=== PATIENT | male | born 1950 | race Caucasian/White ===

== ENCOUNTER 2017-04-13 08:00 | Inpatient (IN) | payer OTHER ==
[2017-03-26 17:07] VITALS: BMI 30.4
[2017-04-16] MEDS ORDERED: ROPIVICAINE 0.2%/MORPH PF/KETOROLAC - 51ML DISP.SYRINGE IA ONE ×3 (09:48→15:31)
[2017-04-16] MEDS ORDERED: TRANEXAMIC ACID 1000 MG/10 ML VIAL IVPUSH ONE (09:48)
[2017-04-16] MEDS ORDERED: CEFAZOLIN 2 GM in DEXTROSE 5%-WATER - 50 ML IVPB ONE (09:48)
[2017-04-16] MEDS: oxyCODONE HCL 10 MG SUSTAINED ACTING TABLET PO ONE ×2 (10:45→16:43)
[2017-04-16] MEDS: CELECOXIB 200 MG CAPSULE PO ONE ×2 (10:45→16:43)
[2017-04-16] MEDS: GABAPENTIN 300 MG CAPSULE (FP) PO ONE ×2 (10:45→16:43)
[2017-04-16] MEDS ORDERED: ePHEDrine SULFATE 50 MG/1 ML AMPULE ONE (11:00)
[2017-04-16] MEDS ORDERED: TRANEXAMIC ACID 1000 MG/10 ML VIAL ONE ×3 (11:01→12:05)
[2017-04-16] MEDS ORDERED: ceFAZolin SODIUM 1 GM VIAL ONE ×2 (11:01→12:05)
[2017-04-16] MEDS ORDERED: PROPOFOL 20 ML ONE ×4 (11:01)
[2017-04-16] MEDS ORDERED: MIDAZOLAM HCL 2 MG/2 ML SINGLE DOSE VIAL ONE ×2 (11:12→15:16)
[2017-04-16] MEDS ORDERED: DEXAMETHASONE SOD PHOSPHATE/PF 10 MG/ML SDV ONE (11:12)
[2017-04-16] MEDS ORDERED: BUPIVACAINE HCL/PF (5 MG/ML) 30 ML VIAL IJ ONE (11:12)
[2017-04-16] MEDS ORDERED: VANCOMYCIN 1,000 MG VIAL (RESTRICTED TO ID ONLY) ONE (12:05)
[2017-04-16] MEDS ORDERED: ONDANSETRON 4 MG/2 ML VIAL IVPUSH PRN (14:46)
[2017-04-16] MEDS ORDERED: ROPIVACAINE 0.2% 400ML 400 ML ML NR ONE (14:47)
[2017-04-16] MEDS ORDERED: oxyCODONE HCL 5 MG TABLET PO PRN ×2 (14:47)
[2017-04-16] MEDS ORDERED: ACETAMINOPHEN 325 MG TABLET (FP) PO SCH (15:00)
[2017-04-16] MEDS ORDERED: MAG HYDROX/AL HYDROX/SIMETH 30 ML UNIT-DOSE CUP PO PRN (15:59)
[2017-04-16] MEDS ORDERED: MAGNESIUM HYDROX 2400MG/30ML ORAL SUSPENSION 30 ML CUP PO PRN (15:59)
[2017-04-16] MEDS ORDERED: ONDANSETRON 4 MG/2 ML VIAL IVPB PRN (15:59)
[2017-04-16] MEDS ORDERED: LACTATED RINGERS SOLUTION 1,000 ML IV SCH (16:00)
[2017-04-16] MEDS ORDERED: PANTOPRAZOLE 40 MG TABLET (FP) PO ONE (16:03)
--- NOTE | 2017-04-16 16:08 | HP ---
Admitting History and Physical - Admission Chief Complaint: left knee OA History Source: Patient, Medical Record Limitations to Obtaining History: No Limitations - Smoking History Smoking history: Never smoked Have you smoked in the past 12 months: No - Alcohol/Substance Use Hx Alcohol Use: Yes (1-2X PER WEEK) Home Medications - Allergies Allergies/Adverse Reactions: Allergies Allergy/AdvReac Type Severity Reaction Status Date / Time shellfish derived Allergy Severe Difficulty Verified 03/26/17 16:55 Breathing No Known Drug Allergies Allergy Verified 03/26/17 16:55 - Home Medications Home Medications: Ambulatory Orders Ibuprofen 800 mg PO DAILY 03/26/17 Quinapril HCl [Accupril] 40 mg PO DAILY 03/26/17 Cholecalciferol (Vitamin D3) [Vitamin D3 -] 1,000 unit PO DAILY 04/16/17 Labetalol HCl [Normodyne -] 200 mg PO DAILY 04/16/17 Physical Examination Vital Signs: Vital Signs Temperature 98.3 F 04/16/17 10:23 Pulse Rate 81 04/16/17 10:23 Respiratory Rate 16 04/16/17 10:23 Blood Pressure 142/93 04/16/17 10:23 O2 Sat by Pulse Oximetry (%) Constitutional: Yes: Well Nourished, No Distress, Calm Eyes: Yes: WNL, Conjunctiva Clear, EOM Intact HENT: Yes: WNL, Atraumatic, Normocephalic Neck: Yes: WNL Cardiovascular: Yes: WNL, Regular Rate and Rhythm Respiratory: Yes: WNL, Regular Gastrointestinal: Yes: WNL, Soft ...Rectal Exam: Yes: Deferred Musculoskeletal: Yes: Joint Stiffness, Joint Swelling, Muscle Pain, Muscle Weakness Extremities: Yes: WNL Edema: No Peripheral Pulses WNL: Yes Integumentary: Yes: WNL Neurological: Yes: WNL, Alert, Oriented ...Motor Strength: WNL Psychiatric: Yes: WNL, Alert, Oriented Labs: Reviewed in chart Imaging - Results X-ray: Image Reviewed Problem List - Problems (1) Osteoarthritis of left knee Code(s): M17.12 - UNILATERAL PRIMARY OSTEOARTHRITIS, LEFT KNEE Qualifiers: Osteoarthritis type: primary Qualified Code(s): M17.12 - Unilateral primary osteoarthritis, left knee
--- NOTE | 2017-04-16 16:09 | OP ---
Operative Note - Note: Operative Date: 04/16/17 Pre-Operative Diagnosis: left knee OA Operation: Left TKA Post-Operative Diagnosis: Same as Pre-op Surgeon: Adair Moore Unit Manager Rn: Goldie Rojas Anesthesia: Spinal Estimated Blood Loss (mls): 50
[2017-04-16] MEDS: KETOROLAC TROMETHAMINE 30 MG/1 ML VIAL IVPUSH SCH ×3 (16:25→21:31)
[2017-04-16] MEDS: ACETAMINOPHEN 1000 MG/100 ML VIAL (NON FORMULARY) IVPB ONE ×2 (16:25→16:45)
[2017-04-16] MEDS: LACTATED RINGERS SOLUTION 1,000 ML IV SCH (16:44)
[2017-04-16] MEDS: traMADol HCL 50 MG TABLET PO SCH ×3 (16:57→22:23)
--- NOTE | 2017-04-16 17:06 | SPEC ---
DATE OF OPERATION: 04/16/2017 PREOPERATIVE DIAGNOSIS: Left knee osteoarthritis. POSTOPERATIVE DIAGNOSIS: Left knee osteoarthritis. PROCEDURE: Left total knee replacement. ATTENDING: Tila Larsen M.D. INSURANCE CONSULTANT: Chavo Schmitt ANESTHESIA: Spinal plus sedation. ESTIMATED BLOOD LOSS: 50 mL. COMPLICATIONS: None. SPECIMENS: Resected bone and tissue with nodular changes resembling nonpigmented PVNS was sent for pathology. IMPLANTS USED: Damien Triathlon size 5 femoral component, Damien Triathlon size 4 tibial component, 13-mm posterior stabilized polyethylene component, 32-mm patellar component. DISPOSITION: The patient was transferred to the PACU in stable condition. INDICATION: This is a 67-year-old male presented to the office complaining of bilateral knee pain. He was diagnosed with bilateral knee osteoarthritis and underwent a long period of nonoperative management including medications, injections, and physical therapy. The patient continues to have severe pain and ambulatory dysfunction and was therefore indicated for a total knee replacement. The risks, benefits, and alternatives to the procedure were explained to the patient in great detail, and he elected to proceed with the surgery. DESCRIPTION OF PROCEDURE: On the day of surgery, the patient was taken to the operating room and placed on the OR table. Spinal anesthesia was administered by the anesthesiologist. The patient was then positioned supine on the table and all bony prominences were padded. A nonsterile tourniquet was placed on the proximal thigh. The knee was then prepped and draped in the usual sterile fashion and intravenous antibiotics were given for infection prophylaxis. A surgical time-out was then performed with the team, and the patients identity, procedure, side, availability of implants, and the administration of antibiotics was confirmed. The leg was then elevated and exsanguinated, and the tourniquet was inflated. With the knee flexed, a midline incision was made and carried down through the subcutaneous fat to the underlying retinaculum. A medial parapatellar arthrotomy was performed. This was followed by a subperiosteal dissection of the tissue off the proximal, medial tibia. A portion of fat pad was removed from under the patellar tendon, and a small portion of fat was excised off the distal supracondylar femur. The knee was then flexed further and the anterior horn of the lateral meniscus was released from the midline. Next, the anterior and posterior cruciate ligaments were transected. Osteophytes were removed from both the femur and tibia. Grade 4 changes were noted diffusely throughout the knee. Hohmann retractors were then placed around the distal femur. The starting drill was used to enter the intramedullary canal. The starting point had been chosen by checking the radiographs and anatomy. Proper alignment and intramedullary placement was then confirmed by placing the long narrow maycol into the femur. Next, the distal femoral cutting guide was adjusted to 6 degrees of valgus and pinned to the femur. The bone resection was assessed using an juliocesar-wing. An approximately 10mm distal cut was made and the cut pieces measured. Once this was complete, the sizing guide was used to determine which size femoral component should be used. Next, the appropriately sized 4-in-1 cutting block was then placed at the correct amount of external rotation and the juliocesar wing was used to assure that there would be no notching of the anterior cortex of the femur. Once this was done, Hohmann retractors were used to protect the medial and lateral collateral ligaments, and all appropriate bone cuts were made. Attention was then turned to the tibia. Hohmann retractors were used to translate the tibia anteriorly and protect the collateral ligaments. The medial and lateral menisci were removed. The extramedullary tibial alignment guide was then placed and adjusted for rotation, varus/valgus, and slope. The height of the cutting block was adjusted to the level of the desired bone resection and then pinned in place. The proximal tibia was then cut with a saw and the bone was removed and measured. Once this was completed, trial components were placed and the knee was taken through a full range of motion. Soft tissue balance was assessed in both flexion and extension and found to be appropriate. The knee was stable throughout the full range of motion. The knee was then put into extension and the patella everted. The synovium around the patella was circumscribed with electrocautery. A caliper was used to measure the patellar thickness and a saw was then used to resect the patella at the chondro-osseous junction. The cut surface was then sized and drilled for the appropriate patellar button, with care taken to medialize it. A trial patella was then placed and the knee was again taken through a full range of motion. The knee was found to have both good balance and good patellar tracking. All of the components were removed except the tibial base plate. The appropriate instrumentation was used to drill and punch the proximal tibia for the keel of the final component. All bony surfaces were then cleaned with pulsatile lavage and dried. Bone cement was then prepared on the back table, and final components were cemented in place in the usual fashion. Extruded cement was removed. The polyethylene trial was placed, the knee was put into extension, and axial pressure was applied for compression while the cement hardened. The patellar button was similarly cemented into place. Once the cement had hardened, the knee was taken through a full range of motion to assess stability, balance, and patellar tracking. This was found to be optimal and the trial polyethylene was exchanged for the appropriately sized real implant. The wound was then thoroughly irrigated with normal saline. No. 1 Polysorb and 0 VLoc 180 barbed sutures were used to close the arthrotomy. No. 1 Polysorb and 2-0 Polysorb sutures were used in the subcutaneous tissues. The skin was closed using both 3-0 VLoc 90 suture in a running subcuticular fashion and SwiftSet skin adhesive. Once this was completed a sterile Aquacel dressing and compressive Jeffrey-wrap was applied. The tourniquet was then deflated and the patient was awakened and taken to the PACU in stable condition. ADDENDUM NUMBER 1: After the arthrotomy, we encountered nodular synovitis in the suprapatellar region. A large portion of this was excised and sent for pathology analysis. ADDENDUM NUMBER 2: After the final implants were placed, a 3-minute dilute Betadine lavage was performed according to the DERMOTT protocol. After this, the knee was thoroughly irrigated with normal saline via pulsatile lavage and wound closure was begun. TILA LARSEN M.D. [id number]
[2017-04-16] MEDS: SENNOSIDES/DOCUSATE COMBO (SENNA PLUS) TABLET (UD) PO SCH (21:29)
[2017-04-16] MEDS: GABAPENTIN 300 MG CAPSULE (FP) PO SCH (21:29)
[2017-04-16] MEDS: ACETAMINOPHEN 325 MG TABLET (FP) PO SCH (21:29)
[2017-04-16] MEDS: CELECOXIB 200 MG CAPSULE PO SCH (21:29)
[2017-04-16] MEDS: ASCORBIC ACID 500 MG TABLET (FP) PO SCH (21:29)
[2017-04-16] MEDS: oxyCODONE HCL 10 MG SUSTAINED ACTING TABLET PO SCH (21:30)
[2017-04-16] MEDS: CEFAZOLIN 2 GM in DEXTROSE 5%-WATER - 50 ML IVPB SCH (21:31)
[2017-04-16] MEDS ORDERED: GABAPENTIN 300 MG CAPSULE (FP) PO SCH (22:00)
[2017-04-17] MEDS: ACETAMINOPHEN 325 MG TABLET (FP) PO SCH ×4 (03:11→21:12)
[2017-04-17] MEDS: KETOROLAC TROMETHAMINE 30 MG/1 ML VIAL IVPUSH SCH ×2 (03:17→11:20)
[2017-04-17] MEDS: CEFAZOLIN 2 GM in DEXTROSE 5%-WATER - 50 ML IVPB SCH (04:46)
[2017-04-17] MEDS: traMADol HCL 50 MG TABLET PO SCH ×4 (04:46→23:01)
[2017-04-17] MEDS: ASPIRIN 325 MG TABLET PO SCH (07:48)
[2017-04-17 08:00] LABS: MCH 29.8 pg (25.7-33.7); MCHC 33.6 g/dl (32.0-35.9); MEAN CELL VOLUME 88.7 fl (80-96); MEAN PLT VOLUME 8.3 fl (7.5-11.1); PLATELET COUNT 222 K/MM3 (134-434); RDW 14.1 % (11.9-15.9); WHITE BLOOD COUNT 10.4 K/mm3 (4.0-10.8)
[2017-04-17 08:05] LABS: ANION GAP 9 (8-16); CALCIUM 8.6 mg/dl (8.4-10.2); CO2 27 mmol/L (22-28); CREATININE 1.5 mg/dl (0.6-1.3); GLUCOSE,RANDOM 184 mg/dl (74-106)
--- NOTE | 2017-04-17 08:05 | SURG ---
Surgery Journeyman Pipe Welder Note Journeyman Pipe Welder: Goldie Rojas PA-C Date of Service: 04/16/17 Diagnosis: left knee OA Procedure: Left TKA I was present for the entirety of the operative procedure. For further detail, please refer to operative report. Visit type - Case Type Case Type: Scheduled Admission
[2017-04-17 09:07] LABS: HIV 1 & 2 AB NEGATIVE; HIV 1 AGp24 NEGATIVE
[2017-04-17] MEDS ORDERED: PT OWN MED DRAWER 7, Y5N ONE ×2 (09:07→09:09)
--- NOTE | 2017-04-17 09:08 | PN ---
Progress Note, Physician Chief Complaint: s/p left TKA under spinal anesthesia History of Present Illness: post op day one with adductor canal catheter in place for post op pain control - Current Medication List Current Medications: Active Medications Acetaminophen (Tylenol -) 650 mg PO Q6H [facility] Stop: 04/19/17 16:01 Last Admin: 04/17/17 03:11 Dose: 650 mg Al Hydroxide/Mg Hydroxide (Mylanta Oral Suspension -) 30 ml PO Q4H PRN PRN Reason: DYSPEPSIA Ascorbic Acid (Vitamin C -) 500 mg PO BID [facility] Last Admin: 04/16/17 21:29 Dose: 500 mg Aspirin (Asa -) 325 mg PO DAILY@0800 [facility] Last Admin: 04/17/17 07:48 Dose: 325 mg Celecoxib (Celebrex -) 200 mg PO BID [facility] Last Admin: 04/16/17 21:29 Dose: 200 mg Fentanyl (Sublimaze Injection -) 50 mcg IVPUSH [id number] PRN PRN Reason: PAIN Stop: 04/19/17 14:47 Gabapentin (Neurontin -) 300 mg PO BID [facility] Stop: 04/19/17 21:59 Last Admin: 04/16/17 21:29 Dose: 300 mg Lactated Ringer's (Lactated Ringers Solution) 1,000 mls @ 125 mls/hr IV ASDIR [facility] Last Admin: 04/16/17 16:44 Dose: Not Given Ketorolac Tromethamine (Toradol Injection -) 30 mg IVPUSH Q6H [facility] Stop: 04/17/17 10:16 Last Admin: 04/17/17 03:17 Dose: 30 mg Labetalol HCl (Normodyne -) 200 mg PO DAILY [facility] Magnesium Hydroxide (Milk Of Magnesia -) 30 ml PO PRN PRN PRN Reason: CONSTIPATION Multivitamins/Minerals/Vitamin C (Tab-A-Vit -) 1 tab PO DAILY [facility] Ondansetron HCl (Zofran Injection) 4 mg IVPB Q6H PRN PRN Reason: NAUSEA Oxycodone HCl (Oxycontin -) 10 mg PO BID [facility] Stop: 04/19/17 14:47 Last Admin: 04/16/17 21:30 Dose: 10 mg Oxycodone HCl (Roxicodone -) 5 mg PO Q4H PRN PRN Reason: PAIN Stop: 04/19/17 14:47 Oxycodone HCl (Roxicodone -) 10 mg PO Q4H PRN PRN Reason: PAIN Stop: 04/19/17 14:48 Pantoprazole Sodium (Protonix -) 40 mg PO DAILY [facility] Quinapril HCl (Accupril -) 40 mg PO DAILY [facility] Senna/Docusate Sodium (Pericolace -) 1 tablet PO BID [facility] Last Admin: 04/16/17 21:29 Dose: 1 tablet Tramadol HCl (Ultram -) 50 mg PO Q6H [facility] Last Admin: 04/17/17 04:46 Dose: 50 mg - Objective Vital Signs: Vital Signs Temperature 97.6 F 04/17/17 03:00 Pulse Rate 67 04/17/17 03:00 Respiratory Rate 19 04/17/17 07:59 Blood Pressure 148/89 04/17/17 03:00 O2 Sat by Pulse Oximetry (%) 100 04/17/17 07:59 Constitutional: Yes: Well Nourished Cardiovascular: Yes: WNL Respiratory: Yes: WNL Gastrointestinal: Yes: WNL Neurological: Yes: WNL Labs: CBC, BMP 04/17/17 07:20 04/17/17 07:20 Assessment/Plan No acute complications from anesthetic, pain controlled, no nausea or vomiting, no residual motor block, no headache. Catheter site is clean dry and intact. dept of anesthesiology will sign off care at this time.
[2017-04-17] MEDS: QUINAPRIL HCL 40 MG TABLET (FP) PO SCH (09:10)
[2017-04-17] MEDS: CELECOXIB 200 MG CAPSULE PO SCH ×2 (09:10→21:11)
[2017-04-17] MEDS: LABETALOL HCL 100 MG TABLET (FP) PO SCH (09:10)
[2017-04-17] MEDS: GABAPENTIN 300 MG CAPSULE (FP) PO SCH ×2 (09:10→21:10)
[2017-04-17] MEDS: MULTIVITAMINS (DAILY MVI) TABLET (FP) PO SCH (09:11)
[2017-04-17] MEDS: ASCORBIC ACID 500 MG TABLET (FP) PO SCH ×2 (09:11→21:11)
[2017-04-17] MEDS: oxyCODONE HCL 10 MG SUSTAINED ACTING TABLET PO SCH ×2 (09:11→21:11)
[2017-04-17] MEDS: SENNOSIDES/DOCUSATE COMBO (SENNA PLUS) TABLET (UD) PO SCH ×2 (09:11→21:12)
[2017-04-17] MEDS: PANTOPRAZOLE 40 MG TABLET (FP) PO SCH (09:11)
[2017-04-17] MEDS: LACTATED RINGERS SOLUTION 1,000 ML IV SCH (16:13)
[2017-04-18] MEDS: ACETAMINOPHEN 325 MG TABLET (FP) PO SCH ×2 (04:39→10:03)
[2017-04-18] MEDS: traMADol HCL 50 MG TABLET PO SCH ×2 (05:40→10:05)
[2017-04-18 06:01] VITALS: BP 117/76; PULSE 78; TEMP 97.8
[2017-04-18 07:52] LABS: MCH 30.8 pg (25.7-33.7); MCHC 34.7 g/dl (32.0-35.9); MEAN CELL VOLUME 88.7 fl (80-96); MEAN PLT VOLUME 7.8 fl (7.5-11.1); PLATELET COUNT 178 K/MM3 (134-434); WHITE BLOOD COUNT 7.7 K/mm3 (4.0-10.8)
[2017-04-18 08:10] LABS: ANION GAP 8 (8-16); CALCIUM 7.9 mg/dl (8.4-10.2); CO2 27 mmol/L (22-28); CREATININE 1.2 mg/dl (0.6-1.3); GLUCOSE,RANDOM 102 mg/dl (74-106)
--- NOTE | 2017-04-18 08:35 | PN ---
Progress Note (short form) - Note Progress Note: S: Pt. without complaints O: VAS 0/10 A/P: pod#1 s/p left tkr 1. adductor canal cath pulled. tip intact 2. continue po pain meds as ordered
[2017-04-18] MEDS ORDERED: PT OWN MED DRAWER 7, Y5N ONE (10:01)
[2017-04-18] MEDS: PANTOPRAZOLE 40 MG TABLET (FP) PO SCH (10:03)
[2017-04-18] MEDS: oxyCODONE HCL 10 MG SUSTAINED ACTING TABLET PO SCH (10:04)
[2017-04-18] MEDS: CELECOXIB 200 MG CAPSULE PO SCH (10:04)
[2017-04-18] MEDS: LABETALOL HCL 100 MG TABLET (FP) PO SCH (10:04)
[2017-04-18] MEDS: ASCORBIC ACID 500 MG TABLET (FP) PO SCH (10:04)
[2017-04-18] MEDS: GABAPENTIN 300 MG CAPSULE (FP) PO SCH (10:05)
[2017-04-18] MEDS: MULTIVITAMINS (DAILY MVI) TABLET (FP) PO SCH (10:06)
[2017-04-18] MEDS: SENNOSIDES/DOCUSATE COMBO (SENNA PLUS) TABLET (UD) PO SCH (10:07)
[2017-04-18] MEDS: ASPIRIN 325 MG TABLET PO SCH (10:07)
[2017-04-18] MEDS: QUINAPRIL HCL 40 MG TABLET (FP) PO SCH (10:08)
--- NOTE | 2017-04-18 13:44 | PN ---
Progress Note (short form) - Note Progress Note: This note is for Thursday04/19/17. Pt seen and examined yesterday evening. Doing well. Ambulated several hundred feet. No complaints. AVSS Selected Entries 04/17/17 14:22 Temperature 98.0 F Pulse Rate 69 Respiratory 18 Rate Blood Pressure 131/70 O2 Sat by Pulse 96 Oximetry (%) Laboratory Tests 04/17/17 04/17/17 07:20 07:20 WBC 10.4 Hgb 15.0 Hct 44.6 Plt Count 222 Sodium 134 L Potassium 4.7 Chloride 98 Carbon Dioxide 27 Anion Gap 9 BUN 21 H Creatinine 1.5 H Random Glucose 184 H Gen: NAD LLE: c/d/i, NVID A/P 67yo male POD#1 s/p L TKA 1. PT/OOB 2. D/C home Thursday. Problem List - Problems (1) Osteoarthritis of left knee Code(s): M17.12 - UNILATERAL PRIMARY OSTEOARTHRITIS, LEFT KNEE Qualifiers: Osteoarthritis type: primary Qualified Code(s): M17.12 - Unilateral primary osteoarthritis, left knee
--- NOTE | 2017-04-18 13:50 | PN ---
Progress Note (short form) - Note Progress Note: This note is for Thursday04/18/17. Pt seen and examined today. Doing well. Ambulated several hundred feet this morning. No complaints. AVSS Selected Entries 04/17/17 04/17/17 19:50 19:55 Temperature 97.5 F L Pulse Rate 69 Respiratory 18 Rate Blood Pressure 122/66 O2 Sat by Pulse 96 Oximetry (%) Oxygen Delivery Room Air Method Laboratory Tests 04/18/17 04/18/17 07:42 07:42 WBC 7.7 Hgb 13.3 D Hct 38.4 Plt Count 178 Sodium 136 Potassium 4.0 Chloride 101 Carbon Dioxide 27 Anion Gap 8 BUN 21 H Creatinine 1.2 Random Glucose 102 D Calcium 7.9 L Gen: NAD LLE: c/d/i, NVID A/P 67yo male POD#2 s/p L TKA 1. PT/OOB 2. D/C home today. Problem List - Problems (1) Osteoarthritis of left knee Code(s): M17.12 - UNILATERAL PRIMARY OSTEOARTHRITIS, LEFT KNEE Qualifiers: Osteoarthritis type: primary Qualified Code(s): M17.12 - Unilateral primary osteoarthritis, left knee
--- NOTE | 2017-04-18 13:51 | DS ---
Physical Examination Vital Signs: Vital Signs Temperature 97.8 F 04/18/17 05:59 Pulse Rate 78 04/18/17 05:59 Respiratory Rate 18 04/18/17 05:59 Blood Pressure 117/76 04/18/17 05:59 O2 Sat by Pulse Oximetry (%) 97 04/18/17 05:59 Labs: CBC, BMP 04/18/17 07:42 04/18/17 07:42 Discharge Summary Reason For Visit: SEVERE OSTEOARTHRITIS LEFT KNEE Current Active Problems Osteoarthritis of left knee (Acute) Procedures: Principal: left TKA Hospital Course: Admitted for elective surgery. Procedure performed without complications. Pt received postoperative antibiotic prophylaxis and DVT ppx. Ambulated with physical therapy. Stable for discharge home with outpatient followup. Condition: Stable - Instructions Diet, Activity, Other Instructions: Dr. Moore - Knee Replacement Instructions Keep the Aquacel dressing on until removed by Dr. Moore in 10-14 days - it is antibacterial and waterproof and you can shower with it on. Call the office for a follow-up appointment with Dr. Moore in 10-14 days. Take one Aspirin 325mg daily for 6 weeks to prevent blood clots in your legs. Take one Pantoprazole 40mg daily for 6 weeks to protect against heartburn and ulcers. Take Celebrex 200mg twice daily for 30 days to reduce swelling and inflammation. For pain: *Mild pain (1-3/10): Take 1 Tramadol tablet every 4 hours as needed. Moderate pain (4-6/10): Take 1 Tramadol tablet and 1 Percocet tablet every 4 hours as needed. Severe pain (7-10/10): Take 1 Tramadol tablet and 2 Percocet tablets every 4 hours as needed. Activity: ~You can put as much weight on the operative leg as you want. Right after you get home, there will be a physical therapist coming to your house to help you walk around and bend/straighten your knee. After your follow-up appointment, you will be sent for more intensive outpatient physical therapy which will include machines and equipment that the home therapist cannot bring to your house. Always use a walker or cane for balance and to prevent falls. Disposition: VNS/HOME HEALTH CARE - Home Medications Comprehensive Discharge Medication List: Ambulatory Orders Quinapril HCl [Accupril -] 40 mg PO DAILY 03/26/17 Cholecalciferol (Vitamin D3) [Vitamin D3 -] 1,000 unit PO DAILY 04/16/17 Labetalol HCl [Normodyne -] 200 mg PO DAILY 04/16/17 Aspirin [ASA -] 325 mg PO DAILY@0800 tablet 04/18/17 Celecoxib [CeleBREX -] 200 mg PO BID #30 tab 04/18/17 Chlorpromazine [Thorazine -] 25 mg PO QID PRN #16 tablet 04/18/17 Multivitamins [Multivit ([facility] Formulary)] 1 tab PO DAILY tab 04/18/17 Oxycodone HCl/Acetaminophen [Percocet 5-325 mg Tablet] 1 - 2 tab PO Q4H PRN #60 tablet MDD 10 04/18/17 Pantoprazole Sodium [Protonix -] 40 mg PO DAILY #40 tab 04/18/17 Sennosides/Docusate Sodium [Pericolace -] 1 tablet PO BID tablet 04/18/17 Tramadol HCl [Ultram -] 50 mg PO Q4H PRN #90 tablet MDD 6 04/18/17
--- NOTE | 2017-04-20 11:36 | PATH ---
Surgical Pathology Report Patient Name: JONATHAN JOYCE Med. Rec. #: [id number] /Age/Gender: 1950 (Age: 67) / M Account: [id number] Location: [facility] MED[facility] Taken: 04/16/2017 Received: 04/16/2017 Reported: 04/20/2017 Physicians: Adair Moore M.D. Specimen(s) Received A: LEFT KNEE SYNOVITIS B: LEFT KNEE BONES Clinical History Left knee osteoarthritis Final Diagnosis A. SOFT TISSUE, LEFT KNEE, EXCISION: HYPERPLASTIC SYNOVIUM WITH MILD NONSPECIFIC CHRONIC SYNOVITIS. B. BONE AND SOFT TISSUE, LEFT KNEE, REPLACEMENT: DEGENERATIVE JOINT DISEASE. Comment: Recommend correlation with clinical findings and follow up as clinically indicated. Electronically Signed Stepan Clay M.D. Gross Description A. Received in formalin labeled "left knee synovitis," is a 7.1 x 5.0 x 2.2 cm aggregate of irregular portions of soft tissue, consistent with synovial tissue. The outer surface is [place]-pink, papillary and focally granular. Sectioning reveals yellow, lobulated soft tissue. Family Service Caseworker sections are submitted in one cassette. B. Received in formalin labeled "left knee bones," is a 15.0 x 12.0 x 1.7 cm aggregate of multiple irregular portions of bone and soft tissue. The tibial plateau measures 8.5 x 5.8 x 1.8 cm. There are multiple areas of eburnation present, measuring up to 3.8 cm in greatest dimension. The remaining articular surfaces are [place]-yellow and focally granular. The underlying trabecular bone is yellow and hard. Family Service Caseworker sections are submitted in one cassette, following decalcification. 04/17/2017 [facility]04/17/2017
== END 2017-04-18 13:53 | disposition home health service (06) | DRG 302 ==
LOC: FM/S 04-16 09:36
PROVIDERS: ADMIT Student in an Organized Health Care Education/Training Program; ATTEND Student in an Organized Health Care Education/Training Program
PROC: 0SBD0ZZ Excision of Left Knee Joint, Open Approach (ICD-10-PCS; 2017-04-16)
PROC: 0SRD0J9 Replacement of Left Knee Joint with Synthetic Substitute, Cemented, Open Approach (ICD-10-PCS; principal; 2017-04-16 13:32)
DX: M17.12 Unilateral primary osteoarthritis, left knee (principal); M65.862 Other synovitis and tenosynovitis, left lower leg; I10 Essential (primary) hypertension
CPT/HCPCS: 36415; 73560-TC-LT; 80048; 85027; 86803; 87389; 88305-TC; 88311-TC; 94010; 94760; 97116-GP; 97162-PG